=== PATIENT | female | born 1975 | race Caucasian/White ===

== ENCOUNTER 2022-05-06 18:36 | Inpatient (IN) | payer OTHER ==
[~2022-05-06] VITALS: Ht 152.4 cm; Wt 71.2 kg
[2022-05-06 21:05] LABS: HEMOGLOBIN 12.9 gm/dl (12.3-15.3); RED BLOOD COUNT 4.68 M/UL (4.00-5.10); WHITE BLOOD COUNT 18.9 K/UL (4.5-11.0)
[2022-05-07 08:50] LABS: HEMOGLOBIN 11.5 gm/dl (12.3-15.3); WHITE BLOOD COUNT 15.8 K/UL (4.5-11.0)
[2022-05-07 08:52] LABS: RED BLOOD COUNT 4.09 M/UL (4.00-5.10)
[2022-05-07] MEDS ORDERED: LOSARTAN POTASS50 MG PO (13:58)
[2022-05-07] MEDS ORDERED: NORETHINDRONE AC5 MG PO (13:58)
[2022-05-07] MEDS ORDERED: METOPROLOL SUCC50 MG PO (13:59)
[2022-05-07] MEDS ORDERED: BUMETANIDE2 MG PO (13:59)
[2022-05-07] MEDS ORDERED: FEROSUL325 MG PO (13:59)
[2022-05-07] MEDS ORDERED: AZELASTINE137 MCG/0. (14:01)
[2022-05-07] MEDS ORDERED: BUPROPION XL150 MG PO (14:01)
[2022-05-07] MEDS ORDERED: VITAMIN D21250 MCG PO (14:01)
[2022-05-07] MEDS ORDERED: HYDRALAZINE HC100 MG PO (14:02)
[2022-05-07] MEDS ORDERED: AMLODIPINE BESY10 MG PO (14:02)
[2022-05-07] MEDS ORDERED: CYCLOBENZAPRINE10 MG PO (14:02)
[2022-05-07] MEDS ORDERED: ASPIRIN EC81 MG PO (14:04)
[2022-05-07] MEDS ORDERED: ONE-A-DAY WOME1 EAC5 PO (14:05)
[2022-05-07] MEDS ORDERED: TYLENOL325 MG PO (14:05)
[2022-05-07] MEDS ORDERED: ATORVASTATIN CA40 MG PO (14:46)
[2022-05-08] MEDS ORDERED: BENADRYL 25MG C25 MG PO (11:57)
[2022-05-08] MEDS ORDERED: BENADRYL ITCH103 ML TP (11:57)
== END 2022-05-09 15:25 | disposition home or self-care (01) | DRG 91 ==
LOC: PROG CARE 18:36
PROVIDERS: Internal Medicine Nephrology; ADMIT Internal Medicine
DX: G92.8 Other toxic encephalopathy (principal); N17.0 Acute kidney failure with tubular necrosis; Q61.3 Polycystic kidney, unspecified; M62.82 Rhabdomyolysis; E87.2 Acidosis; Z20.822 Contact with and (suspected) exposure to COVID-19; I16.0 Hypertensive urgency; W18.30XA Fall on same level, unspecified, initial encounter; T73.0XXA Starvation, initial encounter; F15.10 Other stimulant abuse, uncomplicated; E86.0 Dehydration; I12.9 Hypertensive chronic kidney disease with stage 1 through stage 4 chronic kidney disease, or unspecified chronic kidney disease; F12.10 Cannabis abuse, uncomplicated; N18.30 Chronic kidney disease, stage 3 unspecified; I27.20 Pulmonary hypertension, unspecified; I08.3 Combined rheumatic disorders of mitral, aortic and tricuspid valves; E87.5 Hyperkalemia; F41.9 Anxiety disorder, unspecified; G89.29 Other chronic pain; G40.909 Epilepsy, unspecified, not intractable, without status epilepticus; Z79.01 Long term (current) use of anticoagulants; Z79.82 Long term (current) use of aspirin; Z86.73 Personal history of transient ischemic attack (TIA), and cerebral infarction without residual deficits
CPT/HCPCS: ECHO; 36415; 70450; 71045; 73502; 80053; 80069; 81001; 82550; 82553; 82803; 83036; 83735; 84439; 84443; 84484; 85025; 85027; 87040; 93306; 93971; J0360; J1335; J7070; U0002